=== PATIENT | male | born 1960 | race Caucasian/White ===

== ENCOUNTER 2019-12-11 10:43 | Outpatient (REF) | payer BC, SELFPAY ==
[2019-12-11 19:38] LABS: Absolute Basophil Count 0.02 k/cumm (0.0-0.2); Absolute Eosinophil Count 0.07 k/cumm (0.0-0.7); Absolute Lymphocyte Count 1.68 k/cumm (1.2-3.4); Absolute Monocyte Count 0.39 k/cumm (0.11-0.7); Absolute Neutrophil Count 2.36 k/cumm (1.2-6.7); Basophils % 0.4; Eosinophils % 1.5; HCT 30.1 % (40.0-50.0); HGB 9.6 g/dL (13.5-17.5); Lymphocytes % 37.2; Mean Corp. HGB Concentration 31.9 g/dL (32.0-36.0); Mean Corpuscular Hemoglobin 27.4 pg (27.0-33.0); Mean Platelet Volume 10.4 fL (8.0-11.0); Monocytes % 8.6; Neutrophils % 52.3; Platelet Count 340 x1000/uL (130-400); RBC Distribution Width 15.2 % (11.8-14.1); White Blood Cell Count 4.52 k/cumm (4.4-10.8)
[2019-12-11 19:55] LABS: Basophilic Stippling Present; Diff Comment RBC Morph Reviewed; Hypochromasia 1+; Polychromasia Present
[2019-12-11 19:56] LABS: Poikilocytes 1+
[2019-12-11 20:01] LABS: ALT 28 U/L (16-63); AST 21 U/L (15-37); Albumin 3.7 g/dL (3.4-5.0); Alkaline Phosphatase 59 U/L (46-116); Anion Gap 8.4 mmol/L (3-11); BUN 10 mg/dL (7-18); Bilirubin, Total 0.3 mg/dL (0.2-1.0); CO2 27.6 mmol/L (21.0-32.0); CREATININE 1.06 mg/dL (0.70-1.30); Calcium 8.9 mg/dL (8.5-10.1); Chloride 104 mmol/L (98-107); Glucose 105 mg/dL (74-106); Potassium 4.3 mmol/L (3.5-5.1); Sodium 140 mmol/L (136-145); Total Protein 6.7 g/dL (6.4-8.2)
== END 2019-12-11 11:03 ==
LOC: NCHCN 10:43
PROVIDERS: PCP Internal Medicine; Visit Provider Physician Assistant
DX: D50.0 Iron deficiency anemia secondary to blood loss (chronic) (principal)
CPT/HCPCS: 80053; 85025

== ENCOUNTER 2020-01-08 09:14 | Outpatient (REF) | payer BC, SELFPAY ==
[2020-01-08 19:19] LABS: HCT 31.5 % (40.0-50.0); HGB 9.7 g/dL (13.5-17.5); Mean Corp. HGB Concentration 30.8 g/dL (32.0-36.0); Mean Corpuscular Volume 81.2 fL (80-95); Mean Platelet Volume 10.5 fL (8.0-11.0); Platelet Count 295 x1000/uL (130-400); RBC 3.88 m/cumm (4.50-6.00); RBC Distribution Width 14.3 % (11.8-14.1); White Blood Cell Count 4.61 k/cumm (4.4-10.8)
== END 2020-01-08 09:34 ==
LOC: NCHCN 09:14
PROVIDERS: PCP Internal Medicine; Visit Provider Physician Assistant
DX: K92.2 Gastrointestinal hemorrhage, unspecified (principal)
CPT/HCPCS: 85027

== ENCOUNTER 2021-03-15 17:36 | Outpatient (REF) | payer BC, SELFPAY ==
[2021-03-15 19:11] LABS: Abs Immature Grans 0.01 10^3/uL (0.0-0.06); Absolute Basophil Count 0.03 10^3/uL (0.0-0.2); Absolute Eosinophil Count 0.03 10^3/uL (0.0-0.7); Absolute Lymphocyte Count 2.63 10^3/uL (1.2-3.4); Absolute Monocyte Count 0.44 10^3/uL (0.1-0.8); Absolute Neutrophil Count 4.11 10^3/uL (1.2-6.7); Basophils % 0.4; Eosinophils % 0.4; HCT 41.3 % (40.0-50.0); Immature Grans % 0.1; Lymphocytes % 36.3; MCH 29.4 pg (27.0-33.0); MCHC 33.9 % (32.0-36.0); MCV 86.8 fL (80-95); MPV 10.7 fL (8.0-11.0); Monocytes % 6.1; Neutrophils % 56.7; Nucleated RBC 0 %; Platelet Count 234 10^3/uL (130-400); RBC 4.76 10^6/uL (4.36-5.78); RDW 11.9 % (11.8-14.1); RDW-SD 38.4 fL; WBC 7.25 10^3/uL (4.4-10.8)
[2021-03-15 19:35] LABS: TSH (W/Ref FT4) 0.02 uIU/mL (0.36-3.74)
[2021-03-15 20:00] LABS: FREE T4 1.17 ng/dL (0.76-1.46)
== END 2021-03-15 17:37 | disposition home or self-care (01) ==
LOC: NCHCN 17:36
PROVIDERS: PCP Internal Medicine; Visit Provider Physician Assistant
DX: D50.0 Iron deficiency anemia secondary to blood loss (chronic) (principal); E03.9 Hypothyroidism, unspecified
CPT/HCPCS: 84439; 84443; 85025

== ENCOUNTER 2021-11-24 18:35 | Outpatient (REF) | payer BC, SELFPAY ==
[2021-11-24 19:30] LABS: HCT 34.7 % (40.0-50.0); HGB 11.3 g/dL (13.5-17.5); MCH 29.1 pg (27.0-33.0); MCHC 32.6 % (32.0-36.0); MCV 89.4 fL (80-95); MPV 10.1 fL (8.0-11.0); Platelet Count 347 10^3/uL (130-400); RBC 3.88 10^6/uL (4.36-5.78); RDW 14.8 % (11.8-14.1); RDW-SD 47.2 fL; WBC 11.28 10^3/uL (4.4-10.8)
[2021-11-24 20:25] LABS: Anion Gap 12.5 mmol/L (3-11); BUN 15 mg/dL (7-18); CO2 22.5 mmol/L (21.0-32.0); CREATININE 0.9 mg/dL (0.70-1.30); Calcium 9.3 mg/dL (8.5-10.1); Chloride 101 mmol/L (98-107); Glucose 120 mg/dL (74-106); Potassium 3.9 mmol/L (3.5-5.1); Sodium 136 mmol/L (136-145)
== END 2021-11-24 18:36 | disposition home or self-care (01) ==
LOC: NCHCN 18:35
PROVIDERS: PCP Internal Medicine; Visit Provider Physician Assistant
DX: I10 Essential (primary) hypertension (principal); K92.2 Gastrointestinal hemorrhage, unspecified
CPT/HCPCS: 80048; 85027

== ENCOUNTER 2022-11-10 10:35 | Outpatient (REF) | payer BC, SELFPAY ==
[2022-11-10 19:25] LABS: BUN 9 mg/dL (7-18); Calcium 9.4 mg/dL (8.5-10.1); Chloride 106 mmol/L (98-107); Estimated GFR 84.57 (mL/min/1.73m2); Glucose 118 mg/dL (74-106); Potassium 4.4 mmol/L (3.5-5.1); Sodium 139 mmol/L (136-145)
== END 2022-11-10 10:36 | disposition home or self-care (01) ==
LOC: NCHCN 10:35
PROVIDERS: PCP Internal Medicine; Visit Provider Physician Assistant
DX: I10 Essential (primary) hypertension (principal)
CPT/HCPCS: 80048

== ENCOUNTER 2024-04-23 17:11 | Outpatient (REF) | payer BC, SELFPAY ==
[2024-04-23 20:03] LABS: Abs Immature Grans 0.01 10^3/uL (0.0-0.06); Absolute Basophil Count 0.04 10^3/uL (0.0-0.2); Absolute Eosinophil Count 0.06 10^3/uL (0.0-0.7); Absolute Monocyte Count 0.41 10^3/uL (0.1-0.8); Absolute Neutrophil Count 3.05 10^3/uL (1.2-6.7); Basophils % 0.7 %; HCT 42.6 % (40.0-50.0); HGB 14.5 g/dL (13.5-17.5); Immature Grans % 0.2 %; Lymphocytes % 39.2 %; MCH 30.5 pg (27.0-33.0); MCV 90 fL (80-95); MPV 10.7 fL (8.0-11.0); Neutrophils % 51.9 %; Platelet Count 243 10^3/uL (130-400); RBC 4.76 10^6/uL (4.36-5.78); RDW 11.9 % (11.8-14.1); WBC 5.87 10^3/uL (4.4-10.8)
[2024-04-23 20:26] LABS: Hemoglobin A1C 5.9 % (<5.7)
[2024-04-23 20:30] LABS: ALT 61 U/L (16-63); AST 41 U/L (15-37); Albumin 4.3 g/dL (3.4-5.0); Alkaline Phosphatase 69 U/L (46-116); Anion Gap 10.4 mmol/L (3-11); BUN 9 mg/dL (7-18); Bilirubin, Total 0.49 mg/dL (0.2-1.0); CO2 24.6 mmol/L (21.0-32.0); CREATININE 0.9 mg/dL (0.70-1.30); Calcium 9.5 mg/dL (8.5-10.1); Chloride 106 mmol/L (98-107); Estimated GFR 95.37 (mL/min/1.73m2); Glucose 104 mg/dL (74-106); LDL CHOLESTEROL 102 mg/dL (<100); Potassium 4.2 mmol/L (3.5-5.1); Sodium 141 mmol/L (136-145); Total Protein 8.1 g/dL (6.4-8.2)
[2024-04-23 20:48] LABS: FREE T4 1.17 ng/dL (0.76-1.46)
[2024-04-25 10:03] LABS: Hepatitis C Ab w Rflx HCV PCR Negative (Negative)
[2024-04-25 10:11] LABS: HIV-1/2 Ag & Ab Screen Negative (Negative)
== END 2024-04-23 17:12 | disposition home or self-care (01) ==
LOC: NCHCN 17:11
PROVIDERS: PCP Internal Medicine; Visit Provider Physician Assistant
DX: I10 Essential (primary) hypertension (principal); E78.5 Hyperlipidemia, unspecified; E03.9 Hypothyroidism, unspecified; E66.9 Obesity, unspecified; Z11.4 Encounter for screening for human immunodeficiency virus [HIV]; Z11.59 Encounter for screening for other viral diseases
CPT/HCPCS: 80053; 83721; 86803; 87389; 83036; 84439; 84443; 85025

== ENCOUNTER 2024-07-18 17:30 | Outpatient (REF) | payer MEDICARE, BC, SELFPAY ==
[2024-07-18 19:19] LABS: TSH (W/Ref FT4) 0.31 uIU/mL (0.36-3.74)
[2024-07-18 19:44] LABS: FREE T4 0.89 ng/dL (0.76-1.46)
== END 2024-07-18 17:31 | disposition home or self-care (01) ==
LOC: NCHCN 17:30
PROVIDERS: PCP Internal Medicine; Visit Provider Physician Assistant
DX: E03.9 Hypothyroidism, unspecified (principal)
CPT/HCPCS: 84439; 84443

== ENCOUNTER 2025-06-11 17:47 | Outpatient (REF) | payer MEDICARE, BC, SELFPAY ==
[2025-06-11 19:25] LABS: ALT 34 U/L (16-63); AST 28 U/L (15-37); Albumin 4.3 g/dL (3.4-5.0); Alkaline Phosphatase 66 U/L (46-116); Anion Gap 7.4 mmol/L (3-11); BUN 18 mg/dL (7-18); Bilirubin, Total 0.3 mg/dL (0.2-1.0); CO2 25.6 mmol/L (21.0-32.0); Calcium 9.8 mg/dL (8.5-10.1); Chloride 102 mmol/L (98-107); Estimated GFR 94.19 (mL/min/1.73m2); Glucose 104 mg/dL (74-106); Potassium 4.0 mmol/L (3.5-5.1); Sodium 135 mmol/L (136-145); TSH (W/Ref FT4) 0.47 uIU/mL (0.36-3.74); Total Protein 7.8 g/dL (6.4-8.2)
== END 2025-06-11 17:48 | disposition home or self-care (01) ==
LOC: NCHCN 17:47
PROVIDERS: PCP Internal Medicine; Visit Provider Physician Assistant
DX: E03.9 Hypothyroidism, unspecified (principal); I10 Essential (primary) hypertension
CPT/HCPCS: 80053; 84443

== ENCOUNTER 2025-08-14 13:52 | Outpatient (REF) | payer MEDICARE, BC, SELFPAY ==
[2025-08-14 20:08] LABS: Abs Immature Grans 0.01 10^3/uL (0.0-0.06); HCT 42.8 % (40.0-50.0); HGB 14.1 g/dL (13.5-17.5); Immature Grans % 0.1 %; MCH 30.1 pg (27.0-33.0); MCHC 32.9 % (32.0-36.0); MCV 91 fL (80-95); MPV 10.1 fL (8.0-11.0); Platelet Count 239 10^3/uL (130-400); RBC 4.69 10^6/uL (4.36-5.78); RDW 12.2 % (11.8-14.1); RDW-SD 40.5 fL; WBC 8.76 10^3/uL (4.4-10.8)
== END 2025-08-14 13:53 | disposition home or self-care (01) ==
LOC: NCHCN 13:52
PROVIDERS: PCP Internal Medicine; Visit Provider Physician Assistant
DX: D50.0 Iron deficiency anemia secondary to blood loss (chronic) (principal)
CPT/HCPCS: 85025